=== PATIENT | female | born 1970 ===

== ENCOUNTER 2017-11-15 10:21 | Day surgery (SDC) | payer MEDICAID, OTHER ==
[2017-10-31 14:25] VITALS: BMI 23.1
[2017-11-15] MEDS ORDERED: Midazolam 2 MG/2 ML VIAL ONE ×2 (11:18→11:20)
[2017-11-15] MEDS: Bupivacaine HCl 0.25% PF (10 ml) Inj ONE ×2 (11:19→11:37)
[2017-11-15] MEDS: Lidocaine 1%/Epinephrine 1:100000 30 ml vial IJ ONE ×2 (11:19→11:37)
[2017-11-15] MEDS ORDERED: Propofol 10 mg/ml Inj (20 ML) ONE (11:20)
[2017-11-15] MEDS: ceFAZolin IV 1 gm in Dextrose 1 GM/50 ML BAG IVPB ONE ×2 (11:20→11:30)
[2017-11-15] MEDS ORDERED: Lactated Ringer's 1,000 ML IV ONE ×2 (11:20)
[2017-11-15] MEDS ORDERED: HYDROmorphone 0.5 mg/0.5 ml ISec IVP PRN (12:07)
--- NOTE | 2017-11-15 12:13 | PCM.SURG1 ---
Surgeon's Initial Post Op Note - Surgeon's Notes Surgeon: Dr. Schwarz Phlebotomist Supervisor/Instructor: Kai MORTONY1, Carmen JEAN Type of Anesthesia: IV Sedation Pre-Operative Diagnosis: Breast CA requiring chemotherapy Operative Findings: see operative report Post-Operative Diagnosis: Breast CA requiring chemotherapy Operation Performed: Portacath removal Specimen/Specimens Removed: N/A Estimated Blood Loss: EBL {In ML}: 10 Blood Products Given: N/A Drains Used: No Drains Post-Op Condition: Good Date of Surgery/Procedure: 11/15/17 Time of Surgery/Procedure: 11:30
[2017-11-15] MEDS ORDERED: Oxycodone/Acetaminophen 5/325 mg Tab PO PRN (12:17)
[2017-11-15 13:15] VITALS: RESP 16; O2SAT 100
[2017-11-15 13:58] VITALS: BP 102/54; PULSE 70; TEMP 97.6
--- NOTE | 2017-11-16 07:00 | OP ---
PROCEDURE DATE: 11/15/2017 PREOPERATIVE DIAGNOSES: 1. Breast cancer, status post bilateral mastectomies. 2. Port-A-Cath placed for chemotherapy. 3. Status post completion of chemotherapy. 4. Irregular scar at Port-A-Cath insertion site. POSTOPERATIVE DIAGNOSES: 1. Breast cancer, status post bilateral mastectomies. 2. Port-A-Cath placed for chemotherapy. 3. Status post completion of chemotherapy. 4. Irregular scar at Port-A-Cath insertion site. PROCEDURE: 1. Revision of the scar 4 x 2 cm in size. 2. Port-A-Cath removal. 3. Capsulectomy. 4. Layered closure of the wound 4 x 2 cm size. SURGEON: Yoshi Schwarz MD. MEDIA PLANNER: Chavo Hess, PGY-1, resident. TYPE OF ANESTHESIA: Local anesthesia plus sedation. ESTIMATED BLOOD LOSS: Around 10 mL. DRAINS: None. PATHOLOGY: 1. Port-A-Cath. 2. Revised scar. 3. Capsule surrounding the Port-A-Cath was sent to the pathology. COMPLICATIONS: None. INTRAOPERATIVE FINDINGS: The patient had a metal Port-A-Cath and the Port-A-Cath was surrounded by a thick large capsule due to longstanding Port-A-Cath since the last 6 years and patient also had irregular scar of approximately 4 x 2 cm in size. DESCRIPTION OF PROCEDURE: On intraoperative steps, this is a 47-year-old female, who was diagnosed with breast cancer 6 years ago. Patient underwent bilateral mastectomies and patient also had a Port-A-Cath insertion and patient completed the chemotherapy and patient was seeing for Port-A-Cath removal. Patient also had irregular scar surrounding the Port-A-Cath that patient wanted to take out and patient was consented for the Port-A-Cath removal as well as revision of the scar, brought to the OR, placed supine on the operating table. After induction of the sedation, the local anesthesia was injected and elliptical incision was made approximately 4 x 2 cm in size and the old scar was revised and it was sent off the table for the pathology. Now, the incision was deepened into the subcutaneous tissue and Port-A-Cath was identified. Port-A-Cath appeared to be extremely large metal kind of Port-A-Cath and Port-A-Cath was removed and catheter insertion site was sutured with [id number] to prevent backbleeding. Now, patient had thick large capsule and that the capsule was completely excised and it was off the table for the pathology and hemostasis was achieved and the wound was closed in multiple layers. The space was approximated with multiple 2-0 Vicryl suture, the subcutaneous tissue deep layer with 2-0 Vicryl, superficial layer with 3-0 Vicryl, and skin with 4-0 Monocryl and dry sterile dressing was applied. The patient tolerated the procedure well. Count of the instrument and gauze was correct. There was no apparent complication. The patient was reversed from sedation in the OR, sent to the Postanesthesia Care Unit in stable condition. Yoshi Schwarz MD
== END 2017-11-15 14:00 | disposition home or self-care (01) ==
LOC: C.SDS 10:21
PROVIDERS: ATTEND Surgery Surgical Critical Care
DX: Z45.2 Encounter for adjustment and management of vascular access device (principal); Z90.13 Acquired absence of bilateral breasts and nipples; Z85.3 Personal history of malignant neoplasm of breast; L90.5 Scar conditions and fibrosis of skin
CPT/HCPCS: 11404; 12032; 36590; 88300; 88307; J0690; J2250; J2704; J3010; J7120

== ENCOUNTER 2018-12-18 08:56 | Emergency (ER) | payer OTHER ==
[2018-12-18 08:56] VITALS: BMI 32.3
[2018-12-18 09:26] VITALS: BP 121/80; PULSE 84; RESP 18; TEMP 98.4; O2SAT 97
--- NOTE | 2018-12-18 09:37 | C.PDOC ---
History Of Present Illness Pt c/o nasal congestion/runny nose. Contrary to triage pt denies cough. Time Seen by Provider: 12/18/18 09:26 Chief Complaint (Nursing): Cough, Cold, Congestion History Per: Patient Onset/Duration Of Symptoms: Days (about 2-3 weeks) Current Symptoms Are (Timing): Still Present Associated Symptoms: Nasal Congestion. denies: Cough Severity: Moderate Additional History Per: Prior Records Past Medical History Reviewed: Historical Data, Nursing Documentation, Vital Signs Vital Signs: Last Vital Signs Temp 98.4 F 12/18/18 09:24 Pulse 84 12/18/18 09:24 Resp 18 12/18/18 09:24 BP 121/80 12/18/18 09:24 Pulse Ox 97 12/18/18 09:24 - Medical History PMH: HTN, Hypothyroidism, Malignancy Family History: States: Diabetes, Hypertension - Social History Hx Tobacco Use: No Hx Alcohol Use: No Hx Substance Use: No Review Of Systems Except As Marked, All Systems Reviewed And Found Negative. Constitutional: Negative for: Weakness ENT: Positive for: Throat Pain (?). Negative for: Ear Pain Cardiovascular: Negative for: Chest Pain Respiratory: Negative for: Cough, Shortness of Breath Gastrointestinal: Negative for: Vomiting, Abdominal Pain Musculoskeletal: Negative for: Neck Pain Skin: Negative for: Rash Neurological: Negative for: Weakness, Numbness, Seizures, Altered Mental Status Physical Exam - Physical Exam Appears: Non-toxic, No Acute Distress Skin: Normal Color, Warm, Dry, No Rash Head: Atraumatic, Normacephalic Eye(s): bilateral: Normal Inspection, PERRL, EOMI Oral Mucosa: Moist, No Drooling, No Trismus Throat: Normal Neck: Normal ROM, Supple Cardiovascular: Rhythm Regular Respiratory: Normal Breath Sounds, No Accessory Muscle Use Extremity: Normal ROM Neurological/Psych: Oriented x3, Normal Speech, Normal Motor, Normal Sensation ED Course And Treatment O2 Sat by Pulse Oximetry: 97 Pulse Ox Interpretation: Normal Disposition Counseled Patient/Family Regarding: Diagnosis, Need For Followup, Rx Given - Disposition Referrals: [facility] [Outside] Disposition: HOME/ ROUTINE Disposition Time: 09:37 Condition: STABLE Additional Instructions: Follow up in the clinic. Return to the ER if you develop shortness of breath, worsening of symptoms or if you have any other concerns. Prescriptions: Fluticasone Nasal [Flonase] 2 spr NS BID #1 bottle Instructions: Cough, Runny Nose, and the Common Cold (DC) Print Language: PASHTO - Clinical Impression Clinical Impression: Nasal congestion
== END 2018-12-18 10:07 | disposition home or self-care (01) ==
LOC: C.ER 08:56
DX: R09.81 Nasal congestion (principal)